=== PATIENT | female | born 1955 | race Caucasian/White ===

== ENCOUNTER → 2019-12-30 | Outpatient (CLI) | payer MEDICARE | END | disposition home or self-care (01) | LOC: EDSTATUS 13:00 → CFH 13:01 | PROVIDERS: ATTEND Nurse Practitioner Family | DX: G35 Multiple sclerosis (principal); M62.81 Muscle weakness (generalized); E55.9 Vitamin D deficiency, unspecified | CPT/HCPCS: 70551 ==